=== PATIENT | male | born 1960 | race Caucasian/White ===

== ENCOUNTER → 2025-07-18 16:06 | Outpatient (REF) | payer BC, SELFPAY | LOC: MRI 3T 16:06 | PROVIDERS: ATTENDING PHYSICIAN Specialist; FAMILY PHYSICIAN Internal Medicine | DX: N41.0 Acute prostatitis (principal); R97.20 Elevated prostate specific antigen [PSA] | CPT/HCPCS: 72197; A9575 ==

== ENCOUNTER 2025-08-21 18:52 | Emergency (ER) | payer BC, SELFPAY ==
[2025-08-21 18:58] VITALS: BP 154/85
[2025-08-21 19:31] LABS: Hematocrit 39.7 % (39.0-52.0); Hemoglobin 13.6 g/dL (13.0-18.0); Mean Corp Hgb Conc. 34.3 g/dL (33.0-37.0); Mean Corpuscular Volume 90.0 fL (80.0-94.0); Nucleated Red Blood Cells % 0 % (-); Platelet Count 175 10^3/uL (130-400); Red Cell Dist. Width 12.3 % (11.5-14.5)
[2025-08-21 19:44] LABS: Urine Character Slightly Cloudy (Clear)
[2025-08-21 19:54] LABS: Urine Red Blood Cell >100 /HPF (0-2); Urine Squamous Cell 0-2 /LPF (Few)
[2025-08-21 19:57] LABS: ALT (SGPT) 46 U/L (0-50); AST (SGOT) 40 U/L (17-59); Albumin 4.2 g/dl (3.5-5.0); Alkaline Phosphatase 74 U/L (38-126); Blood Urea Nitrogen 20 mg/dl (9-20); Calcium 9.2 mg/dl (8.4-10.2); Carbon Dioxide 30 mmol/L (22-30); Chloride 100 mmol/L (98-107); Glucose 79 mg/dl (70-99); Potassium 4.5 mmol/L (3.5-5.1); Sodium 134 mmol/L (135-145); Total Protein 7.1 g/dl (6.3-8.2); eGFR > 60.00
[2025-08-21 20:08] LABS: Troponin I < 0.012 ng/ml
[2025-08-21 20:35] VITALS: BP 133/79
[2025-08-21 20:37] VITALS: BMI 25.7
--- NOTE | 2025-08-21 20:41 | ED.GENMED ---
History of Present Illness
General
Chief Complaint: Urinary Symptoms
Time Seen by Provider: 08/21/25 20:41
History of Present Illness
History of Present Illness:
FOCUSED PAST MEDICAL HISTORY
- Prostate cancer, hyperlipidemia, coronary aneurysm
REVIEW OF OLD RECORDS
- The patient was seen here with chest pain in 2016 with normal troponin and EKG at that time
Note:
CHIEF COMPLAINT(S)
Chest pain and hematuria.
HISTORY OF PRESENT ILLNESS
The patient is a 65-year-old male with a history of a rare coronary artery aneurysm and aortic dilation, both diagnosed within the last 90 days. He is currently under the care of specialists at [facility] for these conditions and is in a medication
monitoring program. This morning, the patient awoke with significant pain that he describes as resembling muscle strain, particularly when taking deep breaths. The pain is localized from the middle to the left side of the chest and also manifests
sharply in the back, exacerbated by movement or straining.
The patient reports a history of neck discomfort for approximately the past two weeks, attributed to sleeping position.
He had a prostate biopsy performed one week prior by his urologist due to a slow-growing cancer diagnosis. Post-biopsy, he started experiencing hematuria, aggravated by an episode of urinary retention with subsequent forceful urination resulting in
clots, particularly evident recently. The patient is on antiplatelet therapy with Clopidogrel and aspirin due to the aneurysm. These medications were held briefly before the biopsy and restarted shortly thereafter.
Cardiac evaluation, including blood work and EKG, shows no signs of myocardial infarction. The patient reports no significant shortness of breath, although mentions occasional dizziness associated with a known low heart rate.
PAST MEDICAL AND SURIGICAL HISTORY
- Coronary artery aneurysm
- Aortic dilation
- Recent prostate biopsy for a slow-growing cancer
ADDITIONAL HISTORY OBTAINED FROM SOURCES OTHER THAN THE PATIENT
According to cardiology, the patient is not to undergo any immediate surgical intervention for the aneurysm but remains under regular observation.
CHRONIC MEDICAL CONDITIONS SIGNIFICANTLY AFFECTING CARE
- Coronary artery aneurysm
- Aortic dilation
MEDICATIONS
The patient is on Clopidogrel and aspirin as part of his management for the coronary and aortic conditions.
REVIEW OF SYSTEMS
- Cardiovascular: Experience chest pain exacerbated by certain movements; low heart rate noted.
- Genitourinary: Hematuria post-prostate biopsy, with recent episodes of clot passage.
- Neurological: Reports occasional dizziness.
- Respiratory: No significant dyspnea.
PHYSICAL EXAM
General: Alert, no acute distress. Physically fit in appearance, well-appearing. Pain seems to be brought on with certain twisting motions of his torso.
Skin: Warm, dry.
Head: Normocephalic, atraumatic.
Neck: Supple, trachea midline.
Eye, Ears, Nose, Mouth and Throat: Oral mucosa moist.
Cardiovascular: Normal peripheral perfusion, No edema. Mildly bradycardic
Respiratory: Respirations are non-labored.
Gastrointestinal: Abdomen nondistended.
Back: Normal range of motion, Normal alignment.
Musculoskeletal: Normal ROM, normal strength.
Neurological: Alert and oriented to person, place, time, and situation, No focal neurological deficit observed.
Psychiatric: Cooperative, appropriate mood & affect.
PROBLEM LIST
Acute:
- Musculoskeletal chest pain
- Hematuria with clots post-prostate biopsy
Chronic:
- Coronary artery aneurysm
- Aortic dilation
- Low heart rate
PLAN
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 He is advised to maintain current medication regimen and monitor for any new symptoms. Given the mild nature of findings
and normal cardiac work-up, he may be discharged with recommendations for outpatient management.
DIFFERENTIAL DIAGNOSIS
The Differential Diagnosis includes, in no particular order and is not limited to:
1. Musculoskeletal chest pain
2. Coronary artery disease
3. Myocardial infarction
4. Pulmonary embolism
5. Aortic dissection
6. Gastroesophageal reflux disease
7. Pneumonia
8. Costochondritis
9. Anxiety or panic attack
10. Pericarditis
Disposition:
SUMMARY OF ENCOUNTER
The patient, a 65-year-old male, presented to the emergency department with chest pain described as muscle strain and hematuria following a recent prostate biopsy. He has a known history of coronary artery aneurysm and aortic dilation and is on
antiplatelet therapy. In the emergency department, laboratory tests including complete blood count were conducted, showing normal white blood cell count. The urinalysis confirmed hematuria but no infection. Cardiac evaluation with troponin and EKG
were unremarkable. The patient expressed belief that his chest pain is musculoskeletal, a view supported by the clinical findings. He appeared well, with stable vital signs though mildly bradycardic. He will continue care with outpatient specialists.
DISPOSITION
Discharge
PLAN
The patient is advised to continue his current medication regimen, monitor for any new or worsening symptoms, and follow up with his squad leader and urologist. Maintenance of regular observation by his specialists at [facility] for his coronary artery
aneurysm and aortic dilation is recommended.
INDEPENDENT REVIEW OF LABS AND INTERPRETATION OF TESTS
My independent review of CBC is normal white blood cell count.
My independent review of urinalysis indicates blood without signs of infection.
My independent review of cardiac evaluation, troponin, and EKG is unremarkable.
MEDICATION RECONCILIATION
The patient is on clopidogrel and aspirin for coronary and aortic conditions management.
MEDICAL DECISION MAKING
-Complexity of Data Reviewed: Chronic conditions affecting care include coronary artery aneurysm, aortic dilation, and low heart rate. Differential diagnoses considered cover musculoskeletal chest pain, coronary artery disease, myocardial
infarction, pulmonary embolism, aortic dissection, gastroesophageal reflux disease, pneumonia, costochondritis, anxiety or panic attack, and pericarditis.
-Data:
Category 1
External record reviewed: The patient�s outpatient cardiac and urology records were considered. No additional laboratory testing or imaging was needed beyond the basics conducted in the ED.
Category 2
Clinical information was verified with the patients condition and management plans with his outpatient specialists.
Category 3
Discussion of management was not needed with other healthcare providers during this visit as discharge planning was initiated based on evaluations conducted in the ED.
-Risk:
Consideration of Admission/Observation: Escalation of care including admission/observation was considered given the complexity and risk of the patients presenting complaint, exam findings, and their underlying comorbidities. However, ultimately, the
patient is determined to be safe for outpatient management with close follow-up. Work-up was reassuring and showed no acute life/organ-threatening processes. The patient�s symptoms are well controlled upon reevaluation, reexamination is reassuring,
vitals are stable, the patient is agreeable with discharge, and reliable for follow-up.
DIAGNOSIS
- Chest pain
- Hematuria (ICD-10: R31.9)
- Reported history of coronary artery aneurysm (ICD-10: I25.42)
- Reported history of aortic dilation (ICD-10: I71.9)
EKG
- Sinus, incomplete right bundle branch block, no acute ST abnormality, no significant change from 05/21/2016
LABS
- White count and hemoglobin are normal, chemistries unremarkable, troponin less than 0.012, blood noted on urinalysis but no sign of infection
Past History
Past History
ED Past Medical History: None
ED Past Surgical History: Orthopedic
Social History
Tobacco: Non-smoker
Drug: None
Personal:
Living: with family
Employment: Employed
Family History
Family History: Negative Hypertension, Early CAD or CAD
Phy Exam
Physical Exam
Physical Exam:
See HPI
Course
Orders/Labs/Results
Orders:
Orders
08/21/25 18:55
Electrocardiogram (*1) Urgent
Reason for Study: Chest Pain
08/21/25 18:56
EKG- Treatment ONCE
08/21/25 19:17
Complete Blood Count/With Diff Urgent
Comprehensive Metabolic Panel Urgent
Troponin I Urgent
Urinalysis Urgent
Date Specimen was Collected: 08/21/25
Time Specimen was Collected: 18:56
Urine Microscopic Urgent
Date Specimen was Collected: 08/21/25
Time Specimen was Collected: 18:56
Abnormal Lab Results
08/21/25
19:17
RBC 4.41 L 10^6/uL
(4.70-6.10)
MPV 10.9 H fL
(7.4-10.4)
Absolute Monos (auto) 0.7 H 10^3/uL
(0.1-0.6)
Monocytes % 11.3 H %
(1.7-9.3)
Sodium 134 L mmol/L
(135-145)
Urine Occult Blood 4+ A
(Negative)
Urine RBC >100 A /HPF
(0-2)
Urine Bacteria Moderate A
(Negative)
Urine Albumin 3+ A
(Neg - Trace)
08/21/25 19:17
08/21/25 19:17
Vital Signs
Initial and Last Documented VS:
Initial Vital Signs
Pulse Resp BP Pulse Ox
53 18 154/85 97
08/21/25 18:58 08/21/25 18:58 08/21/25 18:58 08/21/25 18:58
Last Documented Vital Signs
Pulse Resp BP Pulse Ox
45 18 133/79 99
08/21/25 20:35 08/21/25 18:58 08/21/25 20:35 08/21/25 20:42
*Pulse Oximetry
SaO2: 99
Oxygen Mode of Delivery: Room air
Patient hypoxic: no
*Critical Care Note
Total Time (30-74mins, 75-104mins- exclusive of procedures): Not Applicable
ED Attending Note
-
Portions of this chart may have been created with voice recognition software.� Occasional wrong word or��sound alike� substitutions may have occurred due to the inherent limitations of voice recognition software.
Discharge Plan
Departure
Patient Disposition: Home (Routine Discharge)
Date of Disposition: 08/21/25
Time of Disposition: 20:58
Patient with high blood pressure during this ER visit?: Yes
Discharge Problem:
Chest pain
Instructions: Chest Pain NON-[facility] [employer]er Loader Follow Up, BLOOD PRESSURE
Prescriptions:
No Action
naproxen sodium [Aleve] 220 MG tablet
220 mg PO
loratadine 10 MG tablet
10 mg PO DAILY
Activity Restrictions/Additional Instructions:
EKG and cardiac blood work shows no sign of heart attack. Basic blood work is unremarkable. Urinalysis does show blood but no clear sign of infection. Follow-up with your doctors as an outpatient. Return here if worse.
Interventions
Interventions:
*Risk Screen - Suicide Last Done: 08/21/25 19:03
*General Assessment Last Done: 08/21/25 19:02
*Neglect/Abuse Screening Last Done: 08/21/25 19:03
*ED- Fall Risk Assessment Last Done: 08/21/25 20:38
*ED COVID-19 Vaccine History Last Done: 08/21/25 19:03
*ED Influenza Vaccine History Last Done: 08/21/25 19:03
ED- Cardiac Assessment Last Done: 08/21/25 20:32
ED-Male Genitourinary Assessment Last Done: 08/21/25 20:36
Discharge Date and Time
Print Language: [id number]
[2025-08-21 21:00] VITALS: BP 124/69
== END 2025-08-21 21:29 | disposition home or self-care (01) ==
LOC: EMR 18:52
PROVIDERS: Emergency Medicine; EMERGENCY PHYSICIAN Emergency Medicine; FAMILY PHYSICIAN Internal Medicine
DX: R07.89 Other chest pain (principal); R31.9 Hematuria, unspecified; I25.41 Coronary artery aneurysm; E78.00 Pure hypercholesterolemia, unspecified; C61 Malignant neoplasm of prostate; Z51.81 Encounter for therapeutic drug level monitoring; Z79.02 Long term (current) use of antithrombotics/antiplatelets; Z86.79 Personal history of other diseases of the circulatory system
CPT/HCPCS: 99283; 80053; 81003; 81015; 84484; 85025; 93005